=== PATIENT | male | born 1975 | race Caucasian/White ===

== ENCOUNTER 2021-08-17 20:49 | Emergency (ER) | payer BC ==
[~2021-08-17] VITALS: Ht 177.8 cm; Wt 100.0 kg
[~2021-08-17 20:49] MED LIST: SUCCINYLCHOLINE CHLORIDE 200MG/10ML IV ONE
[2021-08-17 21:00] VITALS: BP 0/0
[2021-08-17] MEDS ORDERED: DOPAMINE 400MG/250ML PREMIX 250 ML IV ONE (21:30)
[2021-08-18] MEDS ORDERED: DEXTROSE 50% WATER 50ML SYRINGE IV ONE (08:28)
[2021-08-18] MEDS ORDERED: SODIUM BICARBONATE 8.4% 1 MEQ/ML 50ML SYR IV ONE (08:28)
[2021-08-18] MEDS ORDERED: EPINEPHRINE 0.1MG/ML (1:10,000) 10ML SYR ONE (08:28)
[2021-08-18] MEDS ORDERED: AMIODARONE HCL 50MG/ML 3ML VIAL IV ONE (08:28)
[2021-08-18] MEDS ORDERED: MAGNESIUM SULFATE 4G IN WATER 100ML PREMIX IV ONE (08:28)
[2021-08-18] MEDS ORDERED: CALCIUM CHLORIDE 1GM/10ML SYR IV ONE (08:28)
[2021-08-18] MEDS ORDERED: ATROPINE SULFATE 1MG/10ML SYR ONE (08:28)
== END 2021-08-18 ==
LOC: ER 20:49
DX: I46.9 Cardiac arrest, cause unspecified (principal); E11.9 Type 2 diabetes mellitus without complications
CPT/HCPCS: 31500; 92950; 99291; J0282; J0330; J0461; J1265; J3475; J3490